=== PATIENT | male | born 1940 | race Caucasian/White ===

== ENCOUNTER 2019-02-22 14:45 | Emergency (ER) | payer MEDICARE ==
--- NOTE | 2019-02-22 15:11 | UC ---
Cardiac HPI - HPI Summary HPI Summary: Onset of right lower chest pain this morning, began after he had cream in his coffee which did not taste good to him. No vomiting, normal stool this morning, no abdominal pain. Pain is not remitting, does not radiate, denies a hx of reflux. No dysarthria, no difficulty swallowing. No trauma, he did do some work on a tractor yesterday, but does not recall a strain. Noted to have frequent burping: yesterday he had 3 Abdirahman Birch and coke, along with eating a very heavy meal of beef with lots of fatty sides. States that he has no history of gallbladder disease. 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 He is not a good historian, and his daughter, not available today, usually takes him to MD visits. States that blood pressure is usually in normal range. His says that he is at his baseline in terms of right sided weakness and cognitive function; no changes notied today. 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 Onset/Duration: Sudden Onset, Lasting Hours - about 8 Timing: Constant Initial Severity: Moderate Current Severity: Moderate Pain Intensity: 6 Chest Pain Location: Right Anterior Character: Pressure/Squeezing Aggravating Factor(s): Nothing Alleviating Factor(s): Nothing Associated Signs & Symptoms: Positive: Recent Stress - family under stress. - Risk Factors Pulmonary Embolism Risk Factors: Negative Cardiac Risk Factors: Hypertension Atrial Fibrillation: Hypertension TAD Risk Factors: Negative AMI/ACS Risk Factors: Sedentary Lifestyle - Allergy/Home Medications Allergies/Adverse Reactions: Allergies Allergy/AdvReac Type Severity Reaction Status Date / Time No Known Allergies Allergy Verified 02/22/19 14:55 PMH/Surg Hx/FS Hx/Imm Hx - Additional Past Medical History Additional PMH: overweight, past stroke with right weakness. Gout. Previously Healthy: No Cardiovascular History: Hypertension Neurological History: CVA - Surgical History Surgical History: Yes Surgery Procedure, Year, and Place: 7 TONSILLECTOMY. 1955 APPENDECTOMY [place]. 1994 LEFT CAROID [place]. 2004 LEFT ANKLE BURN/SKIN GRAFT [place] - Social History Occupation: Retired Lives: With Family - lives with his Alcohol Use: Occasionally Substance Use Type: None Smoking Status (MU): Former Smoker - Immunization History Most Recent Influenza Vaccination: 2014 Most Recent Tetanus Shot: within 10 years Most Recent Pneumonia Vaccination: 2013 Review of Systems All Other Systems Reviewed And Are Negative: Yes Constitutional: Positive: Negative. Negative: Fever, Chills, Fatigue Skin: Positive: Negative Eyes: Positive: Negative. Negative: Blurred Vision, Photophobia ENT: Positive: Negative Respiratory: Negative: Shortness Of Breath Cardiovascular: Positive: Chest Pain Gastrointestinal: Positive: Nausea Genitourinary: Positive: Negative Motor: Positive: Weakness - right sided Neurovascular: Positive: Decreased Sensation Musculoskeletal: Positive: Edema Neurological: Positive: Weakness - right sided. Negative: Headache Psychological: Positive: Other - under stress: his 's mother just , planning etc. Is Patient Immunocompromised?: No Physical Exam Triage Information Reviewed: Yes Appearance: Ill-Appearing - Overweight, looks chronically unwell, Pain Distress - moderate., Obese Vital Signs: Initial Vital Signs Temp 98.2 F 02/22/19 14:50 Pulse 66 02/22/19 14:50 Resp 16 02/22/19 14:50 BP 211/73 02/22/19 14:50 Pulse Ox 97 02/22/19 14:50 Vital Signs Reviewed: Yes Eye Exam: Other - CHERIE, normal EOM Eyes: Positive: Conjunctiva Clear ENT: Positive: Pharynx normal Neck: Positive: Supple, Nontender, No Lymphadenopathy Respiratory: Positive: Lungs clear, Normal breath sounds, No respiratory distress Cardiovascular: Positive: RRR, No Murmur Abdomen Description: Positive: Nontender, No Organomegaly, Soft, Distended. Negative: CVA Tenderness (R), CVA Tenderness (L), Guarding Bowel Sounds: Positive: Present Neurological Exam: Other - No pronator drift. 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 Neurological: Positive: Alert, Muscle Tone Normal Psychological Exam: Normal Skin Exam: Other - trace to 1+ edema. Chronic venous stasis changes. Diagnostics - EKG Cardiac Rate: NL Cardiac Rhythm: Sinus: Normal Ectopy: None ST Segment: Non-Specific EKG Comparison: Other - Q wave in lead 3. - Assessment/Plan Course Of Treatment: Advised transfer to hospital due to elevated blood pressure and need for diagnostic work up of right chest pain. - Differential Diagnoses - Chest Pain Differential Diagnosis/HQI/PQRI: GI Disease, Lower Respiratory Infection - Differential Diagnoses - Hypertension Differential Diagnosis/HQI PQRI: AAA, Hypertension, Hypertensive Urgency - Clinical Impression Provider Diagnosis: Right-sided chest pain, HTN (hypertension) - Physician Notifications Discussed Patient Care With: Doreen Flynn Time Discussed With Above Provider: 15:30 Instructed by Provider To: Transfer - Elects transfer by private car Discharge - Sign-Out/Discharge Documenting (check all that apply): Patient Departure All imaging exams completed and their final reports reviewed: No Studies - Discharge Plan Condition: Stable Disposition: TRANS HIGHER LVL OF CARE FAC Referrals: Hal Chou MD [Primary Care Provider] - Additional Instructions: Please go directly to the [facility] for evaluation due to severe high blood pressure and need to have testing to evaluate the cause of the right chest pain. - Billing Disposition and Condition Condition: STABLE Disposition: Trans Higher Lvl of Care Fac
[2019-02-22 15:28] VITALS: BP 192/72
== END 2019-02-22 15:44 | disposition short-term general hospital (02) ==
LOC: UCCORT 14:45
DX: R07.89 Other chest pain (principal); I10 Essential (primary) hypertension; M10.9 Gout, unspecified; Z87.891 Personal history of nicotine dependence; Z86.73 Personal history of transient ischemic attack (TIA), and cerebral infarction without residual deficits
CPT/HCPCS: 93005; 99212; G0463